=== PATIENT | female | born 1990 | race Caucasian/White ===

== ENCOUNTER 2018-08-25 20:38 | Emergency (ER) | payer OTHER ==
[2018-08-25 20:56] VITALS: BP 115/61; PULSE 72; RESP 16; TEMP 98.4; O2SAT 100
[2018-08-25] MEDS ORDERED: Lidocaine PF 2% (5 ml) Inj (For Cardiac Arrhy) IJ STA (21:12)
--- NOTE | 2018-08-25 22:33 | ED PDOC ---
HPI: General Adult Time Seen by Provider: 08/25/18 21:10 Chief Complaint (Nursing): ENT Problem Chief Complaint (Provider): Earring in left ear History Per: Patient History/Exam Limitations: no limitations Additional Complaint(s): 28 yo female with no medical problems presents for evaluation of earring in skin of the left ear. Pt reports using dove soap last night and states that this morning she noticed skin covering the earring. No drainage. Pt had ear pierced 1 month ago. Past Medical History Reviewed: Historical Data, Nursing Documentation, Vital Signs Vital Signs: Last Vital Signs Temp 98.4 F 08/25/18 20:53 Pulse 72 08/25/18 20:53 Resp 16 08/25/18 20:53 BP 115/61 08/25/18 20:53 Pulse Ox 100 08/25/18 20:53 - Medical History PMH: No Chronic Diseases - Surgical History Surgical History: Appendectomy - Family History Family History: States: Unknown Family Hx - Living Arrangements Living Arrangements: With Family - Social History Current smoker - smoking cessation education provided: No - Immunization History Hx Tetanus Toxoid Vaccination: No Hx Influenza Vaccination: No Hx Pneumococcal Vaccination: No - Home Medications Home Medications: Ambulatory Orders Medication Instructions Recorded Tobramycin 0.3% [Tobramycin 5 Ml] 1 drop OS TID #1 bottle 12/03/16 - Allergies Allergies/Adverse Reactions: Allergies Allergy/AdvReac Type Severity Reaction Status Date / Time No Known Allergies Allergy Verified 12/03/16 07:01 Review of Systems ROS Statement: Except As Marked, All Systems Reviewed And Found Negative Constitutional: Negative for: Fever, Chills Skin: Positive for: Other Physical Exam - Reviewed Nursing Documentation Reviewed: Yes Vital Signs Reviewed: Yes - Physical Exam Appears: Positive for: Well, Non-toxic, No Acute Distress Head Exam: Positive for: ATRAUMATIC, NORMAL INSPECTION, NORMOCEPHALIC Skin: Positive for: Warm. Negative for: Normal Color (Anterior round area of earring embedded in depression of left ear, no erythema, no drainage ) Eye Exam: Positive for: Normal appearance ENT: Positive for: Normal ENT Inspection Neck: Positive for: Normal Cardiovascular/Chest: Negative for: Bradycardia, Tachycardia Respiratory: Negative for: Accessory Muscle Use, Respiratory Distress Back: Positive for: Normal Inspection Extremity: Positive for: Normal ROM Neurologic/Psych: Positive for: Alert, Oriented - ECG O2 Sat by Pulse Oximetry: 100 Medical Decision Making Medical Decision Making: Area cleaned with alcohol swab. 0.3 cc of lidocaine without epi used. Earring was pushed anteriorly through skin. Pt does not want earring removed at this time. PT states she will get a larger post/earring tomorrow. Disposition - Clinical Impression Clinical Impression: Skin foreign body - Patient ED Disposition Is Patient to be Admitted: No Counseled Patient/Family Regarding: Diagnosis, Need For Followup, Rx Given - Disposition Referrals: [facility] [Outside] Disposition: Routine/Home Disposition Time: 22:32 Condition: GOOD Instructions: Foreign Body in Skin
== END 2018-08-25 23:03 | disposition home or self-care (01) ==
LOC: H.ER 20:38
DX: T16.1XXA Foreign body in right ear, initial encounter (principal)

== ENCOUNTER 2018-10-01 09:26 | Emergency (ER) | payer OTHER ==
--- NOTE | 2018-10-01 10:08 | ED PDOC ---
History of Present Illness History of Present Illness: Marissa Price is a 28 year old female with no past medical history who is presenting to the ED for evaluation of sore throat, dry cough, right sided ear pain and diarrhea onset 3 days ago. Patient states that she and her family went to the [facility] on vacation and came back 2 weeks ago, believing that the unsanitary hotel made them sick. She also complains of pink eye but has been using tobramycin drops. Patient offers no other medical complaints at this time. Daughter being evaluated in ED for similar sxs. PMD: MarisolAlesha HPI: Influenza Time Seen by Provider: 10/01/18 09:44 Chief Complaint: Cough, Cold, Congestion Chief Complaint (Provider): Cough, Cold, Congestion History Per: Patient Exam Limitations: no limitations Have you had recent travel within the past 21 days to any of: Yes Onset/Duration Of Symptoms: Days Symptoms include: sore throat, cough, diarrhea Past Medical History Reviewed: Historical Data, Nursing Documentation, Vital Signs Vital Signs: Last Vital Signs Temp 98.2 F 10/01/18 09:53 Pulse 98 H 10/01/18 09:53 Resp 18 10/01/18 09:53 BP 108/74 10/01/18 09:53 Pulse Ox 96 10/01/18 09:53 - Medical History PMH: No Chronic Diseases - Surgical History Surgical History: Appendectomy - Family History Family History: States: Unknown Family Hx - Social History Current smoker - smoking cessation education provided: No Alcohol: None Drugs: Denies - Immunization History Hx Tetanus Toxoid Vaccination: No Hx Influenza Vaccination: No Hx Pneumococcal Vaccination: No - Home Medications Home Medications: Ambulatory Orders Medication Instructions Recorded Tobramycin 0.3% [Tobramycin 5 Ml] 1 drop OS TID #1 bottle 12/03/16 Loratadine/Pseudoephedrine 1 each PO DAILY PRN #10 tab.er.24h 10/01/18 [Claritin-D 24 Hour Tablet] Neomycin/Polymyxin/Hydrocortis 4 drop OT TID 10 Days #1 bottle 10/01/18 [Cortisporin Otic Susp] - Allergies Allergies/Adverse Reactions: Allergies Allergy/AdvReac Type Severity Reaction Status Date / Time No Known Allergies Allergy Verified 12/03/16 07:01 Review of Systems ROS Statement: Except As Marked, All Systems Reviewed And Found Negative Eyes: Positive for: Redness ENT: Positive for: Ear Pain, Throat Pain Gastrointestinal: Positive for: Diarrhea Physical Exam - Reviewed Nursing Documentation Reviewed: Yes Vital Signs Reviewed: Yes - Physical Exam Appears: Positive for: Non-toxic, No Acute Distress Head Exam: Positive for: ATRAUMATIC, NORMAL INSPECTION, NORMOCEPHALIC Eye Exam: Positive for: EOMI, PERRL, Other (mild erythema to left eye) ENT: Positive for: Other (right edematous ear canal, no drainage) Cardiovascular/Chest: Positive for: Regular Rate, Rhythm. Negative for: Murmur Respiratory: Positive for: Normal Breath Sounds. Negative for: Respiratory Distress Neurologic/Psych: Positive for: Alert, Oriented. Negative for: Motor/Sensory Deficits Medical Decision Making Medical Decision Making: Time: 10:01 Plan: --ED Urine --Chest X-Ray ------ Scribe Attestation: Documented by, Lisa Barker acting as a scribe for Monique Wilson MD. Provider Scribe Attestation: All medical record entries made by the Scribe were at my direction and personally dictated by me. I have reviewed the chart and agree that the record accurately reflects my personal performance of the history, physical exam, medical decision making, and the department course for this patient. I have also personally directed, reviewed, and agree with the discharge instructions and dis position. - ECG O2 Sat by Pulse Oximetry: 96 Disposition - Clinical Impression Clinical Impression: Otitis externa, URI (upper respiratory infection) - Disposition Referrals: Melly Damon MD [Family Provider] - Disposition: Routine/Home Disposition Time: 13:21 Condition: STABLE Prescriptions: Loratadine/Pseudoephedrine [Claritin-D 24 Hour Tablet] 1 each PO DAILY PRN #10 tab.er.24h PRN Reason: Allergy Symptoms Neomycin/Polymyxin/Hydrocortis [Cortisporin Otic Susp] 4 drop OT TID 10 Days #1 bottle Instructions: Outer Ear Infection, Viral Upper Respiratory Infection, Adult (DC) Forms: [employer] (Bel[place]ian)
--- NOTE | 2018-10-01 10:41 | RAD ---
Date of service: 10/01/2018 HISTORY: Cough COMPARISON: No prior. TECHNIQUE: Chest PA and lateral FINDINGS: LUNGS: No active pulmonary disease. PLEURA: No significant pleural effusion identified. No pneumothorax apparent. CARDIOVASCULAR: No aortic atherosclerotic calcification present. Normal cardiac size. No pulmonary vascular congestion. OSSEOUS STRUCTURES: No significant abnormalities. VISUALIZED UPPER ABDOMEN: Normal. OTHER FINDINGS: None. IMPRESSION: No active disease.
[2018-10-01] MEDS ORDERED: guaiFENesin 100 mg/5 ml Syrup UD PO STA (12:42)
[2018-10-01] MEDS ORDERED: guaiFENesin 100 mg/5 ml Syrup UD ONE (12:44)
[2018-10-01 13:33] VITALS: BP 118/68; PULSE 88; RESP 16; TEMP 98
[2018-10-04 12:38] VITALS: O2SAT 96
== END 2018-10-01 13:31 | disposition home or self-care (01) ==
LOC: H.ER 09:26
DX: J06.9 Acute upper respiratory infection, unspecified (principal); H60.91 Unspecified otitis externa, right ear